=== PATIENT | female | born 1970 | race African-American/Black ===

== ENCOUNTER 2017-06-19 10:59 | Emergency (ER) | payer OTHER ==
[~2017-06-19] VITALS: Ht 157.5 cm; Wt 95.3 kg
[2017-06-19] MEDS ORDERED: METOPROLOL TART25 MG PO (11:03)
[2017-06-19 11:49] LABS: BASOPHILS 1.4 % (0.0-2.0); EOSINOPHILS 2.1 % (0.0-3.0); HEMATOCRIT 43.3 % (37.0-47.0); HEMOGLOBIN 14.7 gm/dL (12.0-15.0); LYMPHOCYTES 47.4 % (24.0-44.0); MANUAL DIFF NO; MCH 31.4 pg (26.0-34.0); MCV 92.4 fL (80.0-100.0); MONOCYTES 11.1 % (1.0-8.0); PLATELET COUNT 250 thou/uL (150-400); RBC 4.68 mil/uL (4.20-5.00); RDW 13.6 % (10.5-14.5); WBC 5.3 thou/uL (4.0-11.0)
[2017-06-19 11:51] LABS: CALCIUM 9.9 mg/dL (8.5-10.1); CREATININE 0.8 mg/dL (0.6-1.0)
[2017-06-19 11:52] LABS: POTASSIUM 4.2 mmol/L (3.5-5.1)
[2017-06-19 11:58] LABS: ALBUMIN 3.5 g/dL (3.4-5.0); TOTAL BILIRUBIN 0.9 mg/dL (<0.1-1.0); TOTAL PROTEIN 7.4 g/dL (6.4-8.2)
[2017-06-19 13:00] LABS: URINE BILIRUBIN NEGATIVE (Negative); URINE BLOOD NEGATIVE (Negative); URINE COLOR YELLOW; URINE GLUCOSE-RANDOM* NEGATIVE (Negative); URINE KETONES NEGATIVE (Negative); URINE LEUKOCYTES-REFLEX NEGATIVE (Negative); URINE PROTEIN (DIPSTICK) NEGATIVE (Negative)
[2017-06-19] MEDS ORDERED: MIRALAX17 GM PO (13:32)
[2017-06-19] MEDS ORDERED: TRAMADOL 50 MG50 MG PO (13:32)
[2017-06-19] MEDS ORDERED: SENNOSIDES-DOC1 EACH PO (13:32)
[2017-06-19 13:40] VITALS: BP 109/54
== END 2017-06-19 13:47 | disposition home or self-care (01) ==
LOC: ER 10:59
PROVIDERS: Emergency Medicine
DX: K59.00 Constipation, unspecified (principal); I10 Essential (primary) hypertension